=== PATIENT | female | born 1965 | race Two or more races ===

== ENCOUNTER 2022-06-08 09:23 | Outpatient (CLI) | payer OTHER | END 2022-06-08 09:28 | disposition home or self-care (01) | LOC: LAB 09:23 | DX: R63.4 Abnormal weight loss (principal); E08.9 Diabetes mellitus due to underlying condition without complications; I10 Essential (primary) hypertension ==

== ENCOUNTER 2022-09-21 12:16 | Outpatient (CLI) | payer OTHER | END 2022-09-21 12:24 | disposition home or self-care (01) | LOC: SONOGRAMA 12:16 | PROVIDERS: ATTEND Internal Medicine | DX: E04.8 Other specified nontoxic goiter (principal) ==

== ENCOUNTER 2023-02-01 14:14 | Outpatient (CLI) | payer OTHER | END 2023-02-01 14:18 | disposition home or self-care (01) | LOC: LAB 14:14 | DX: N94.9 Unspecified condition associated with female genital organs and menstrual cycle (principal); N95.1 Menopausal and female climacteric states ==

== ENCOUNTER 2023-02-22 15:05 | Outpatient (CLI) | payer OTHER | END 2023-02-22 15:09 | disposition home or self-care (01) | LOC: LAB 15:05 | DX: R53.1 Weakness (principal); E03.9 Hypothyroidism, unspecified; D51.9 Vitamin B12 deficiency anemia, unspecified ==

== ENCOUNTER 2023-03-29 10:19 | Outpatient (CLI) | payer OTHER | END 2023-03-29 10:25 | disposition home or self-care (01) | LOC: MAMO-SONO 10:19 | PROVIDERS: ATTEND Obstetrics & Gynecology | DX: N60.11 Diffuse cystic mastopathy of right breast (principal); N60.12 Diffuse cystic mastopathy of left breast; Z12.31 Encounter for screening mammogram for malignant neoplasm of breast ==

== ENCOUNTER 2023-03-29 11:09 | Outpatient (CLI) | payer OTHER | END 2023-03-29 11:14 | disposition home or self-care (01) | LOC: LAB 11:09 | DX: N95.1 Menopausal and female climacteric states (principal); N95.0 Postmenopausal bleeding; N93.9 Abnormal uterine and vaginal bleeding, unspecified ==

== ENCOUNTER 2023-10-11 15:00 | Outpatient (CLI) | payer OTHER ==
[2023-10-13 10:07] LABS: ESTRADIOL SERUM 61.6 pg/mL (0.0-54.7)
== END 2023-10-11 15:05 | disposition home or self-care (01) ==
LOC: LAB 15:00
PROVIDERS: ATTEND Obstetrics & Gynecology
DX: L68.0 Hirsutism (principal)

== ENCOUNTER 2023-12-27 09:51 | Outpatient (CLI) | payer OTHER ==
[2023-12-27 10:49] LABS: HEMATOCRIT 42.1 % (36.0-45.00); HEMOGLOBIN 14.3 g/dL (12.0-15.00); MEAN CELL VOLUME 96.2 fL (80.00-100.00); MEAN CORPUSCULAR HEMOGLOBIN 32.6 pg (27.00-32.0); MEAN CORPUSCULAR HGB CONC 33.9 g/dl (32.0-36.0); PLATELET COUNT 271 K/uL (150-450); RED BLOOD COUNT 4.37 M/uL (4.00-6.00); RED CELL DISTRIBUTION WIDTH 13.4 % (11.5-14.5)
[2023-12-27 11:40] LABS: ALBUMIN 3.8 gm/dL (3.4-5.0); BILIRUBIN TOTAL 0.37 mg/dL (0.3-1.2); CALCIUM 9.2 mg/dL (8.5-10.1); CHOL HDL RATIO 2.6 (0-5.0); CREATININE SERUM 0.58 mg/dL (0.55-1.02); GFR 106.04; GLOBULINA 3.1 G/DL (2.4-3.5); POTASSIUM 4.14 mEq/L (3.5-5.1); TOTAL PROTEIN 6.9 gm/dL (6.4-8.2); TSH 1.51 uIU/mL (0.358-3.74)
== END 2023-12-27 09:52 | disposition home or self-care (01) ==
LOC: LAB 09:51
PROVIDERS: ATTEND Internal Medicine
DX: E11.65 Type 2 diabetes mellitus with hyperglycemia (principal); E03.8 Other specified hypothyroidism; E78.5 Hyperlipidemia, unspecified; I10 Essential (primary) hypertension; E55.9 Vitamin D deficiency, unspecified

== ENCOUNTER 2024-06-12 14:53 | Outpatient (CLI) | payer OTHER ==
[2024-06-14 09:11] LABS: FOLLICLE STIMULATING HORMONE 36.5 mIU/mL (25.8-134.8); PROGESTERONA 0.9 ng/mL (.); TESTOSTERONE,TOTAL < 3.00 ng/dL (4-50)
== END 2024-06-12 14:54 | disposition home or self-care (01) ==
LOC: LAB 14:53
DX: E03.8 Other specified hypothyroidism (principal); I10 Essential (primary) hypertension; E55.9 Vitamin D deficiency, unspecified

== ENCOUNTER 2024-07-03 08:25 | Outpatient (CLI) | payer OTHER ==
[2024-07-03 08:54] LABS: HEMATOCRIT 42.4 % (36.0-45.00); HEMOGLOBIN 14.3 g/dL (12.0-15.00); MEAN CORPUSCULAR HEMOGLOBIN 32.3 pg (27.00-32.0); MEAN CORPUSCULAR HGB CONC 33.7 g/dl (32.0-36.0); PLATELET COUNT 263 K/uL (150-450); RED BLOOD COUNT 4.42 M/uL (4.00-6.00); RED CELL DISTRIBUTION WIDTH 12.7 % (11.5-14.5)
[2024-07-03 10:20] LABS: ALBUMIN 3.9 gm/dL (3.4-5.0); BILIRUBIN TOTAL 0.54 mg/dL (0.3-1.2); CALCIUM 9.2 mg/dL (8.5-10.1); CHOL HDL RATIO 2.3 (0-5.0); CREATININE SERUM 0.52 mg/dL (0.55-1.02); GFR 119.88; GLOBULINA 3.2 G/DL (2.4-3.5); POTASSIUM 4.13 mEq/L (3.5-5.1); TOTAL PROTEIN 7.1 gm/dL (6.4-8.2)
[2024-07-03 21:07] LABS: TSH 0.452 uIU/mL (0.358-3.74)
== END 2024-07-03 08:28 | disposition home or self-care (01) ==
LOC: LAB 08:25
PROVIDERS: ATTEND Internal Medicine
DX: E03.8 Other specified hypothyroidism (principal); E78.5 Hyperlipidemia, unspecified; E11.65 Type 2 diabetes mellitus with hyperglycemia; I10 Essential (primary) hypertension

== ENCOUNTER 2024-09-04 15:10 | Outpatient (CLI) | payer OTHER ==
[2024-09-06 06:05] LABS: ESTRADIOL SERUM 90.5 pg/mL (0.0-54.7)
[2024-09-06 06:05] LABS: FOLLICLE STIMULATING HORMONE 21.4 mIU/mL (25.8-134.8); PROGESTERONA 0.5 ng/mL (.)
== END 2024-09-04 15:17 | disposition home or self-care (01) ==
LOC: LAB 15:10
DX: R79.89 Other specified abnormal findings of blood chemistry (principal); E55.9 Vitamin D deficiency, unspecified; A60.9 Anogenital herpesviral infection, unspecified; Z12.11 Encounter for screening for malignant neoplasm of colon; D64.9 Anemia, unspecified; E03.8 Other specified hypothyroidism; N95.1 Menopausal and female climacteric states; I00 Rheumatic fever without heart involvement; C51.8 Malignant neoplasm of overlapping sites of vulva; N30.00 Acute cystitis without hematuria; E83.51 Hypocalcemia; N39.0 Urinary tract infection, site not specified

== ENCOUNTER 2024-09-11 08:24 | Outpatient (CLI) | payer OTHER ==
[2024-09-11 09:35] LABS: PH,URINE 5.5 (5.0-8.0); URINE APPEARANCE Clear; URINE BILIRRUBIN Negative (NEGATIVE); URINE BLOOD Negative; URINE COLOR Yellow; URINE GLUCOSE Negative (NEGATIVE); URINE KETONE Trace (NEGATIVE); URINE LEUKOCYTE Trace; URINE NITRATE Negative; URINE PROTEIN Negative (NEGATIVE); URINE UROBILINOGEN 0.2 E.U./dl
[2024-09-11 09:36] LABS: HEMOGLOBIN 13.9 g/dL (12.0-15.00); MEAN CELL VOLUME 95.8 fL (80.00-100.00); MEAN CORPUSCULAR HEMOGLOBIN 33.4 pg (27.00-32.0); MEAN CORPUSCULAR HGB CONC 34.8 g/dl (32.0-36.0); PLATELET COUNT 289 K/uL (150-450); RED BLOOD COUNT 4.18 M/uL (4.00-6.00); RED CELL DISTRIBUTION WIDTH 13.7 % (11.5-14.5)
[2024-09-11 09:41] LABS: URINE BACTERIA 1409.8 uL (0.0-1933); URINE EPITHELIAL CELLS 53.6 uL (0.0-38.8); URINE RBC 6.5 uL (0.0-20.8); URINE WBC 3.7 uL (0.0-23.2)
[2024-09-11 09:54] LABS: URINE CAST 0.15 uL (0.0-1.40)
[2024-09-11 10:38] LABS: ALBUMIN 3.6 gm/dL (3.4-5.0); BILIRUBIN TOTAL 0.32 mg/dL (0.3-1.2); CALCIUM 9.1 mg/dL (8.5-10.1); CHOL HDL RATIO 2.9 (0-5.0); CREATININE SERUM 0.48 mg/dL (0.55-1.02); GFR 131.48; GLOBULINA 3.3 G/DL (2.4-3.5); POTASSIUM 4.46 mEq/L (3.5-5.1); T4 FREE 0.97 NG/ML (0.76-1.46); T4 TOTAL 7.15 UG/DL (4.8-13.9); TOTAL PROTEIN 6.9 gm/dL (6.4-8.2); TSH 1.65 uIU/mL (0.358-3.74)
== END 2024-09-11 08:37 | disposition home or self-care (01) ==
LOC: LAB 08:24
DX: E11.9 Type 2 diabetes mellitus without complications (principal); I10 Essential (primary) hypertension; E03.9 Hypothyroidism, unspecified; E78.5 Hyperlipidemia, unspecified

== ENCOUNTER 2024-12-11 12:02 | Outpatient (CLI) | payer OTHER ==
[2024-12-13 10:08] LABS: ESTRADIOL SERUM 44.5 pg/mL (0.0-54.7); FOLLICLE STIMULATING HORMONE 24.6 mIU/mL (25.8-134.8); PROGESTERONA 1.7 ng/mL (.)
== END 2024-12-11 12:08 | disposition home or self-care (01) ==
LOC: LAB 12:02
PROVIDERS: ATTEND Obstetrics & Gynecology
DX: Z12.11 Encounter for screening for malignant neoplasm of colon (principal); D64.9 Anemia, unspecified; E03.8 Other specified hypothyroidism; N95.1 Menopausal and female climacteric states; I10 Essential (primary) hypertension; C51.9 Malignant neoplasm of vulva, unspecified; N30.00 Acute cystitis without hematuria; E83.51 Hypocalcemia; A64 Unspecified sexually transmitted disease; N39.0 Urinary tract infection, site not specified; R97.8 Other abnormal tumor markers; R79.89 Other specified abnormal findings of blood chemistry; E55.9 Vitamin D deficiency, unspecified; A60.9 Anogenital herpesviral infection, unspecified

== ENCOUNTER 2025-01-15 09:09 | Outpatient (CLI) | payer OTHER ==
[2025-01-15 10:38] LABS: HEMATOCRIT 40.8 % (36.0-45.00); MEAN CELL VOLUME 96.1 fL (80.00-100.00); MEAN CORPUSCULAR HEMOGLOBIN 33.1 pg (27.00-32.0); MEAN CORPUSCULAR HGB CONC 34.4 g/dl (32.0-36.0); PLATELET COUNT 267 K/uL (150-450); RED BLOOD COUNT 4.24 M/uL (4.00-6.00); RED CELL DISTRIBUTION WIDTH 13.5 % (11.5-14.5)
[2025-01-15 11:28] LABS: ALBUMIN 3.8 gm/dL (3.4-5.0); BILIRUBIN TOTAL 0.45 mg/dL (0.3-1.2); CALCIUM 8.7 mg/dL (8.5-10.1); CHOL HDL RATIO 2.8 (0-5.0); CREATININE SERUM 0.52 mg/dL (0.55-1.02); GFR 119.88; GLOBULINA 3.3 G/DL (2.4-3.5); POTASSIUM 4.3 mEq/L (3.5-5.1); TOTAL PROTEIN 7.1 gm/dL (6.4-8.2); TSH 1.09 uIU/mL (0.358-3.74)
== END 2025-01-15 09:10 | disposition home or self-care (01) ==
LOC: LAB 09:09
PROVIDERS: ATTEND Internal Medicine
DX: E53.8 Deficiency of other specified B group vitamins (principal); E11.65 Type 2 diabetes mellitus with hyperglycemia; E78.5 Hyperlipidemia, unspecified

== ENCOUNTER 2025-01-15 09:59 | Outpatient (CLI) | payer OTHER | END 2025-01-15 10:06 | disposition home or self-care (01) | LOC: SONOGRAMA 09:59 | PROVIDERS: ATTEND Internal Medicine | DX: E04.2 Nontoxic multinodular goiter (principal) ==

== ENCOUNTER 2025-01-15 13:06 | Outpatient (CLI) | payer OTHER | END 2025-01-15 13:08 | disposition home or self-care (01) | LOC: NUCLEAR 13:06 | PROVIDERS: ATTEND Obstetrics & Gynecology | DX: M81.0 Age-related osteoporosis without current pathological fracture (principal) ==

== ENCOUNTER → 2025-01-29 09:45 | Outpatient (CLI) | payer OTHER | END | disposition home or self-care (01) | LOC: NUCLEAR 09:45 | DX: G45.9 Transient cerebral ischemic attack, unspecified (principal) ==

== ENCOUNTER 2025-04-16 12:00 | Outpatient (CLI) | payer OTHER | END 2025-04-16 12:06 | disposition home or self-care (01) | LOC: RAD 12:00 | DX: I20.9 Angina pectoris, unspecified (principal) ==

== ENCOUNTER 2025-06-15 08:10 | Outpatient (CLI) | payer OTHER ==
[2025-06-15 09:03] LABS: BASO % 1.1 % (0.1-1.2); EOS # 0.12 (0.04-0.54); EOS % 1.8 % (0.7-7.0); LYMPH # 1.47 (1.18-3.74); LYMPH % 22.1 % (19.3-53.1); MEAN PLATELET VOLUME 10.90 fl (9.4-12.4); MONO # 0.60 (0.24-0.82); MONO % 9.0 % (4.7-12.5); NEUT # 4.37 (1.56-6.13); NEUT % 65.7 % (34.0-71.1); RED CELL DISTRIBUTION WIDTH 12.4 % (11.6-14.4)
[2025-06-15 09:04] LABS: URINE APPEARANCE Cloudy; URINE BILIRRUBIN Negative (NEGATIVE); URINE BLOOD Negative; URINE COLOR Yellow; URINE GLUCOSE Negative (NEGATIVE); URINE KETONE Trace (NEGATIVE); URINE LEUKOCYTE Trace; URINE NITRATE Negative; URINE PROTEIN Negative (NEGATIVE); URINE UROBILINOGEN 1.0 E.U./dl
[2025-06-15 09:06] LABS: URINE BACTERIA 3397.1 uL (0.0-1933); URINE RBC 8.6 uL (0.0-20.8); URINE WBC 57.6 uL (0.0-23.2)
[2025-06-15 09:41] LABS: ALT/SGPT 22.0 U/L (12-78); AST/SGOT 12.0 U/L (15-37); BILIRUBIN TOTAL 0.52 mg/dL (0.3-1.2); BUN CREA RATIO 29.0 (7.0-25.0); CHOL HDL RATIO 2.5 (0-5.0); CREATININE SERUM 0.59 mg/dL (0.55-1.02); GFR 103.62; GLOBULINA 3.7 G/DL (2.4-3.5); GLUCOSE FASTING 89.0 mg/dL (65-100); HDL 74.0 mg/dl (40-60); LDL 99.0 mg/dl (0-130); OSMOLALITY SERUM 284.0 MOSM/KG (275-295); T4 TOTAL 9.4 UG/DL (4.8-13.9); TSH 2.42 uIU/mL (0.358-3.74); VLDL 11.0 (0-39)
[2025-06-15 09:57] LABS: URINE CAST 0.29 uL (0.0-1.40); URINE EPITHELIAL CELLS > 201.7 uL (0.0-38.8)
[2025-06-15 10:58] LABS: T3 TOTAL 0.793 ng/ml (0.846-2.02); VITAMIN D3 25 HYDROXY 52.69 ng/ml (30-120)
[2025-06-16 09:11] LABS: ESTRADIOL SERUM 28.8 pg/mL (0.0-54.7); PROGESTERONA 3.2 ng/mL (.)
== END 2025-06-15 08:11 | disposition home or self-care (01) ==
LOC: LAB 08:10
DX: R53.83 Other fatigue (principal); N95.0 Postmenopausal bleeding

== ENCOUNTER 2025-07-30 11:07 | Outpatient (CLI) | payer OTHER | END 2025-07-30 11:14 | disposition home or self-care (01) | LOC: MAMO-SONO 11:07 | PROVIDERS: ATTEND Obstetrics & Gynecology | DX: N60.11 Diffuse cystic mastopathy of right breast (principal); N60.12 Diffuse cystic mastopathy of left breast; R10.20 Pelvic and perineal pain unspecified side ==

== ENCOUNTER 2025-09-25 14:10 | Outpatient (CLI) | payer OTHER | END 2025-09-25 14:16 | disposition home or self-care (01) | LOC: SONOGRAMA 14:10 | PROVIDERS: ATTEND Neuromusculoskeletal Medicine, Sports Medicine | DX: M25.511 Pain in right shoulder (principal) ==